=== PATIENT | male | born 1955 | race Caucasian/White ===

== ENCOUNTER 2017-04-08 08:54 | Day surgery (SDC) | payer BC ==
[2017-04-06 13:26] VITALS: BMI 34.7
[~2017-04-08 08:54] MED LIST: LACTATED RINGERS 1,000 ML IV SCH
[2017-04-08 09:37] VITALS: RESP 18; TEMP 98
[2017-04-08] MEDS ORDERED: LIDOCAINE 1% 20 ML VIAL (10MG/ML) FOR IV START INTRADERMA ONE (09:37)
[2017-04-08] MEDS ORDERED: fentaNYL (PF) 50 MCG/ML 2 ML AMP ONE (09:50)
[2017-04-08] MEDS ORDERED: PROPOFOL 10 MG/ML 20 ML VIAL IV ONE (09:50)
[2017-04-08] MEDS ORDERED: MIDAZOLAM 2 MG/2 ML VIAL ONE (09:50)
--- NOTE | 2017-04-08 10:05 | P.PCN ---
Date of Procedure: 04/08/17 Procedure(s) Performed: BRIEF HISTORY: Patient is a 62-year-old pleasant white male, scheduled for an elective colonoscopy as a part of evaluation of prior history of colon polyps. Last colonoscopy was 5 years ago. PROCEDURE PERFORMED: Colonoscopy. PREOPERATIVE DIAGNOSIS: History of colon polyps. IV sedation per Anesthesia. PROCEDURE: After informed consent was obtained, the patient, was brought into the endoscopy unit. IV sedation was administered by Anesthesia under continuous monitoring. Digital rectal examination was normal. Initially the Olympus CF- 160 flexible video colonoscope was then inserted in the rectum, gradually advanced into the cecum without any difficulty. Careful examination was performed as the scope was gradually being withdrawn. Ileocecal valve and the appendiceal orifice were visualized and appeared normal. Prep was excellent. Mucosa of the cecum, ascending colon, transverse colon, descending colon, sigmoid colon, and rectum appeared normal. Scattered sigmoid diverticulosis seen. Retroflexion was performed in the rectum and no lesions were seen. The patient tolerated the procedure well. IMPRESSION: Normal-appearing colon from rectum to cecum with no evidence of colorectal neoplasia. Scattered sigmoid diverticulosis. RECOMMENDATIONS: Findings of this examination were discussed with the patient as well as his family. He was advised to have a repeat surveillance colonoscopy in 5 years because of the prior history of colon polyps.
[2017-04-08 10:39] VITALS: BP 158/92; PULSE 58
== END 2017-04-08 10:48 | disposition home or self-care (01) ==
LOC: ORWHC2ENDO 08:54
PROVIDERS: ATTEND Internal Medicine Gastroenterology
DX: Z12.11 Encounter for screening for malignant neoplasm of colon (principal); Z86.010 Personal history of colon polyps; K57.30 Diverticulosis of large intestine without perforation or abscess without bleeding; I10 Essential (primary) hypertension; G47.33 Obstructive sleep apnea (adult) (pediatric); E07.9 Disorder of thyroid, unspecified; Z79.899 Other long term (current) drug therapy; Z86.711 Personal history of pulmonary embolism
CPT/HCPCS: J2250; J3010; J2704; G0105; 45378

== ENCOUNTER → 2018-07-28 | Outpatient (CLI) | payer BC ==
--- NOTE | 2018-07-28 15:58 | XR ---
EXAMINATION TYPE: XR cervical spine comp DATE OF EXAM: 07/28/2018 COMPARISON: None HISTORY: 63-year-old male with neck pain TECHNIQUE: 7 views FINDINGS: No predental space widening or prevertebral soft tissue swelling. Some degenerative changes at the C1 dens articulation. There is preserved alignment with minimal anterior endplate spondylosis at C5-C6. Mild uncovertebral joint arthropathy mid to lower cervical spine. On the left, there is mild to moderate bony spondylotic neuroforaminal narrowing at C5-C6 and mild at C6-C7. No significant neural foraminal narrowing on the right. Limited odontoid view. IMPRESSION: 1. Some scattered uncovertebral joint arthropathy at the mid to lower cervical spine with minimal end plate spondylosis. 2. There may be mild to moderate bony neuroforaminal narrowing on the left at C5-C6 and mild at C6-C7 . 3. Preserved alignment.
== END | disposition home or self-care (01) ==
LOC: RADXRMAIN 13:08
PROVIDERS: ATTEND Family Medicine
DX: M47.812 Spondylosis without myelopathy or radiculopathy, cervical region (principal); M46.92 Unspecified inflammatory spondylopathy, cervical region
CPT/HCPCS: 72050

== ENCOUNTER → 2020-11-22 | Outpatient (CLI) | payer BC ==
[2020-11-22 11:14] VITALS: BMI 32.1
== END ==
LOC: DBWHC3 08:32
PROVIDERS: ATTEND Family Medicine
DX: R73.9 Hyperglycemia, unspecified (principal); Z87.891 Personal history of nicotine dependence
CPT/HCPCS: 97802

== ENCOUNTER → 2022-07-02 | Day surgery (SDC) | payer MEDICARE, OTHER ==
[~2022-07-02] MED LIST changes: +PROPOFOL 10 MG/ML 20 ML VIAL IV ONE
[2022-07-02 08:08] VITALS: TEMP 97.8
[2022-07-02 08:21] LABS: Glucose,Whole Blood 143 mg/dL (70-110)
--- NOTE | 2022-07-02 09:33 | P.PCN ---
Date of Procedure: 07/02/22 Procedure(s) Performed: BRIEF HISTORY: Patient is a 67-year-old pleasant white male scheduled for an elective colonoscopy as a part of screening for colon cancer and prior history of colon polyps. PROCEDURE PERFORMED: Colonoscopy. PREOPERATIVE DIAGNOSIS: Screening for colon cancer/history of colon polyps. IV sedation per Anesthesia. PROCEDURE: After informed consent was obtained, the patient, was brought into the endoscopy unit. IV sedation was administered by Anesthesia under continuous monitoring. Digital rectal examination was normal. Initially the Olympus CF-160 flexible video colonoscope was then inserted in the rectum, gradually advanced into the cecum without any difficulty. Careful examination was performed as the scope was gradually being withdrawn. Ileocecal valve and the appendiceal orifice were visualized and appeared normal. Prep was excellent. Mucosa of the cecum, ascending colon, appeared normal. In the proximal transverse colon there were 2 polyps measuring 3 mm and 5 mm in size removed by snare polypectomy. Rest of the transverse colon, descending colon, sigmoid colon, and rectum appeared normal. Retroflexion was performed in the rectum and no lesions were seen. The patient tolerated the procedure well. IMPRESSION: 3 mm and 5 mm transverse colon polyp status post polypectomy Rest of the colon appeared normal RECOMMENDATIONS: Findings of this examination were discussed with the patient as well as a family. He was advised to follow with the biopsy results. If the biopsy results adenoma he can have a repeat colonoscopy in 5 years
[2022-07-02 09:38] VITALS: RESP 16
[2022-07-02 09:55] VITALS: BP 100/58; PULSE 68
== END ==
LOC: ORWHC2ENDO 07:39
PROVIDERS: ATTEND Internal Medicine Gastroenterology
DX: Z12.11 Encounter for screening for malignant neoplasm of colon (principal); D12.3 Benign neoplasm of transverse colon; Z87.19 Personal history of other diseases of the digestive system
CPT/HCPCS: 88305; 45385; J2704

== ENCOUNTER → 2023-08-29 | Outpatient (CLI) | payer MEDICARE, OTHER ==
--- NOTE | 2023-09-01 09:16 | MR ---
EXAMINATION TYPE: MR Prostate wo/w con DATE OF EXAM: 08/29/2023 8:32 AM COMPARISON: None. CLINICAL INDICATION:Male, 68 years old with history of R97.20 ELEVATED PROSTATE SPECIFIC ANTIGEN; Salud vated PSA TECHNIQUE: Multi-planar, multi-sequence imaging of the pelvis is performed prior to and following the uncomplicated administration of bolus intravenous gadolinium. CONTRAST: 9.5 Gadobutrol Interpretive Criteria: PI-RADS v2.1 SERUM PSA: 5.3 on March 2022. 12.27 on July 2023. SURGICAL PATHOLOGY: No data available. FINDINGS: Prostatic dimensions: 6.6 x 5.9 x 4.6 cm. Ellipsoid Volume:93.79 (PSA density=0.13 ng/mL/mL) CENTRAL GLAND (Central and Transition Zones/CZ+TZ): Multiple bilateral, heterogenous appearing hypertrophic stromal nodules, without suspicious lesion. M edian lobe hypertrophy with protrusion into the base of the bladder. (PI-RADS 2) PERIPHERAL ZONE (PZ): Bilateral linear, indistinct wedgelike areas of low ADC, and low T2 signal, No evidence of masslike a bnormality, or localized perfusional hypervascularity, to further suggest a focus of clinically signi ficant prostate cancer. (PI-RADS 2) SEMINAL VESICLES (SV): Symmetric and unremarkable. PERIPROSTATIC TISSUES: Unremarkable. LYMPH NODES: No enlarged pelvic lymph node. REMAINING PELVIS: Bladder wall is within normal limits given distention. No abnormal free or organized intrapelvic fluid collection. No pathologic bowel dilation or mural thickening. No hernia visualized OSSEOUS STRUCTURES: No suspicious osseous abnormality. Bilateral hip arthroplasties with susceptibility artifact. IMPRESSION: 1. No specific features for high-risk prostate cancer. Maximum PI-RADS score: 2. 2. Substantial BPH, estimated gland volume 93.79 mL. 3. No suspicious osseous lesion. No lymphadenopathy. No evidence of prostate adenocarcinoma involving the periprostatic tissues.
== END | disposition home or self-care (01) ==
LOC: RADMRIMAIN 07:14
PROVIDERS: ATTEND Urology
DX: R97.20 Elevated prostate specific antigen [PSA] (principal); N40.0 Benign prostatic hyperplasia without lower urinary tract symptoms
CPT/HCPCS: 72197; A9585

== ENCOUNTER → 2024-12-16 | Outpatient (CLI) | payer MEDICARE, OTHER ==
--- NOTE | 2024-12-16 14:40 | CT ---
EXAMINATION TYPE: CT iac wo con CT DLP: 142.70 mGycm, Automated exposure control for dose reduction was used. DATE OF EXAM: 12/16/2024 2:27 PM INDICATION: Patient age:Male; 69 years old; Reason for study: H93.19 TINNITUS, UNSPECIFIED EAR; PHH. COMPARISON: None. TECHNIQUE: Multiple thin axial images were obtained through the temporal bones and internal auditory canals. Additional coronal reformatted images were obtained. No IV contrast was utilized. FINDINGS: Right Temporal Bone: External Ear: Minimal cerumen, The tympanic membrane is present and unremarkable. Middle Ear: The ossicles demonstrate a normal appearance. Prussak's space is clear and the scutum i s intact. There is no evidence of osseous erosion and the tegmen tympani is intact. Inner Ear: Cochlea, vestibule and semi circular canals are unremarkable. No evidence of carotid ron l dehiscence. Two and a half turns of the cochlea are identified. The vestibular aqueduct is not enl arged. Mastoid Air Cells: The mastoid air cells are clear. The tegmen mastoideum is intact. The aditus ad an trum is clear. Internal Auditory Canal: The internal auditory canal is unremarkable. Left Temporal Bone: External Ear: Minimal cerumen, The tympanic membrane is present and unremarkable. Middle Ear: The ossicles demonstrate a normal appearance. Prussak's space is clear and the scutum i s intact. There is no evidence of osseous erosion and the tegmen tympani is intact. Inner Ear: Cochlea, vestibule and semi circular canals are unremarkable. No evidence of carotid ron l dehiscence. Two and a half turns of the cochlea are identified. The vestibular aqueduct is not enl arged. Mastoid Air Cells: The mastoid air cells are clear. The tegmen mastoideum is intact. The aditus ad an trum is clear. Internal Auditory Canal: The internal auditory canal is unremarkable. Mild to moderate mucosal thickening in the visualized ethmoid sinuses. The remaining visualized paran madhu sinuses are clear. Nasal septal deviation to the left. Atherosclerotic calcification of the visu alized bilateral internal carotid arteries. IMPRESSION: No CT evidence for abnormality within the internal auditory canals bilaterally. [facility], , 12/16/2024 2:37 PM
== END | disposition home or self-care (01) ==
LOC: RADCTMAIN 14:09
PROVIDERS: ATTEND Otolaryngology
DX: H93.19 Tinnitus, unspecified ear (principal)
CPT/HCPCS: 70480